=== PATIENT | female | born 1960 | race Caucasian/White ===

== ENCOUNTER 2016-07-17 00:40 | Inpatient (IN) | payer OTHER ==
[~2016-07-17] VITALS: Ht 139.7 cm; Wt 72.7 kg
--- NOTE | ~2016-07-17 | EKG ---
[address] [place] [address] ELECTROCARDIOGRAM REPORT Name: MAHESH PELLETIERALEK Room #: 464-P [facility] IN M.R.#: [id number] Admission: 07/17/16 Attend Phys: Vaughn Agarwal MD Discharge: 07/17/16 Date of : 64 Report #: [id number] THIS REPORT FOR: //name// [facility] ED Test Date: 2016-07-17 Test Time: 00:49:13 Pat Name: LIYAH ARAGON Department: Room: [facility] Gender: F Director Of Analytics: BRENT : 1960 Requested By: Digna Bravo Order Number: [id number] MD: Fam De Guzman Measurements Intervals [place] Rate: 109 P: 37 [place]: 158 QRS: -17 QRSD: 82 T: 70 QT: 337 QTc: 454 Interpretive Statements Sinus tachycardia Borderline left axis deviation Poor R wave progression No previous ECG available for comparison Electronically Signed On 07-18-2016 14:12:51 AGRICULTURAL SCIENTIST by Fam De Guzman [email or web address] <ELECTRONICALLY SIGNED> By: Fam De Guzman MD, [facility] 07/18/16 1412 0049 0049 Fam De Guzman MD, [facility] /EPI
[~2016-07-17 00:40] MED LIST: ASPIR 8181 MG PO; ATORVASTATIN CA40 MG PO; COLACE 100 MG100 MG PO; HYDROCODON-ACE1 EAC7 PO; IBUPROFEN 600600 M1 PO; LEVEMIR FL100 UNIT/2 SQ; LISINOPRIL10 MG; LISINOPRIL5 MG PO; LOPRESSOR25 PO; METFORMIN HCL500 MG; METFORMIN HCL500 MG PO; MIRALAX17 GM PO; NAPROSYN500 MG PO; NORCO 5-325 TA1 EACH PO; NOVOLOG100 UNIT/1 SUBQ; ONDANSETRON HCL4 M2 PO; PACERONE 200 M200 M1 PO; PEPCID20 MG PO; PRINIVIL20 M1 PO; TESSALON PERLE100 MG PO
[2016-07-17 00:43] VITALS: BP 173/101
[2016-07-17 01:24] LABS: ANION GAP 12 mmol/L (7-16); BUN 22 mg/dL (7-18); CALCIUM 8.6 mg/dL (8.5-10.1); CHLORIDE 100 mmol/L (98-107); CO2 26 mmol/L (21-32); CREATININE 0.9 mg/dL (0.6-1.3); GLUCOSE 236 mg/dL (70-99); POTASSIUM 4.3 mmol/L (3.5-5.1); SODIUM 138 mmol/L (136-145)
[2016-07-17 01:33] LABS: TROPONIN-I < 0.04 ng/mL (<0.04-0.07)
[2016-07-17 01:39] LABS: ABSOLUTE NEUTROPHILS 3.2 thou/uL (1.4-8.2); EOSINOPHILS 3.9 % (0.0-3.0); HEMATOCRIT 38.2 % (37.0-47.0); HEMOGLOBIN 12.5 gm/dL (12.0-15.0); LYMPHOCYTES 45.1 % (24.0-44.0); MCH 29.8 pg (26.0-34.0); MCHC 32.8 % (28.0-37.0); MCV 90.7 fL (80.0-100.0); MONOCYTES 7.8 % (1.0-8.0); PLATELET COUNT 318 thou/uL (150-400); POLYS 42.2 % (36.0-66.0); RBC 4.21 mil/uL (4.20-5.00); RDW 13.9 % (10.5-14.5); WBC 7.7 thou/uL (4.0-11.0)
[2016-07-17 01:42] LABS: MANUAL DIFF NO
[2016-07-17] MEDS ORDERED: LISINOPRIL5 MG PO (02:18)
[2016-07-17] MEDS ORDERED: METFORMIN HCL500 MG PO (02:18)
[2016-07-17 02:31] VITALS: BP 134/81
[2016-07-17 03:08] VITALS: BP 166/89
[2016-07-17 07:40] VITALS: BP 146/86
[2016-07-17 08:19] LABS: CHOLESTEROL 241 mg/dL (<200); HDL CHOLESTEROL 51 mg/dL (>40); TC:HDL 4.7 Ratio (Not establshd); TRIGLYCERIDE 493 mg/dL (<150); VLDL 99 mg/dL (<40)
[2016-07-17 11:24] VITALS: BP 125/75
[2016-07-17] MEDS ORDERED: PROTONIX40 M1 PO (14:38)
[2016-07-17 14:51] VITALS: BP 125/75
== END 2016-07-17 15:35 | disposition home or self-care (01) | DRG 313 ==
LOC: ER 00:40 → 4W 01:58 → EROBS 01:58 → 4W 02:37
PROVIDERS: Emergency Medicine; Nurse Practitioner
DX: R07.89 Other chest pain (principal); I25.10 Atherosclerotic heart disease of native coronary artery without angina pectoris; I10 Essential (primary) hypertension; E78.5 Hyperlipidemia, unspecified; D64.9 Anemia, unspecified; R51 Headache; E11.65 Type 2 diabetes mellitus with hyperglycemia; Z79.82 Long term (current) use of aspirin; Z95.1 Presence of aortocoronary bypass graft; Z88.2 Allergy status to sulfonamides
CPT/HCPCS: 10045

== ENCOUNTER 2016-11-19 16:42 | Emergency (ER) | payer OTHER ==
[~2016-11-19] VITALS: Ht 147.3 cm; Wt 67.6 kg
--- NOTE | ~2016-11-19 | EKG ---
[address] [address] ELECTROCARDIOGRAM REPORT Name: ALEK PUGA Room #: [facility]P [facility]#: [id number] Admission: 11/19/16 Attend Phys: Discharge: 11/19/16 Date of : 64 Report #: [id number] THIS REPORT FOR: //name// [facility] ED Test Date: 2016-11-19 Test Time: 16:53:34 Pat Name: ALEK PELLETIER Department: Room: Gender: F Gift Consultant: RON : 1960 Requested By: Balta Hernandez Order Number: [id number] MD: Marlon Castano Measurements Intervals [place] Rate: 98 P: 51 [place]: 148 QRS: -12 QRSD: 82 T: 76 QT: 346 QTc: 442 Interpretive Statements Sinus rhythm Baseline wander in lead(s) V6 Compared to ECG 07/17/2016 00:49:13 Sinus tachycardia no longer present Poor R-wave progression no longer present Electronically Signed On 11-22-2016 8:29:44 CDT by Marlon Castano [email or web address] <ELECTRONICALLY SIGNED> By: Marlon Castano MD 11/22/16 0829 1653 1653 Marlon Castano MD /EPI
[~2016-11-19 16:42] MED LIST changes: +PROTONIX40 M1 PO
[2016-11-19] MEDS ORDERED: ASPIR 8181 MG PO (17:33)
[2016-11-19 17:49] LABS: ABSOLUTE NEUTROPHILS 5.8 thou/uL (1.4-8.2); BASOPHILS 0.6 % (0.0-2.0); EOSINOPHILS 2.4 % (0.0-3.0); HEMATOCRIT 36.8 % (37.0-47.0); HEMOGLOBIN 12.5 gm/dL (12.0-15.0); LYMPHOCYTES 20.9 % (24.0-44.0); MANUAL DIFF NO; MCH 30.6 pg (26.0-34.0); MONOCYTES 7.2 % (1.0-8.0); PLATELET COUNT 328 thou/uL (150-400); POLYS 68.9 % (36.0-66.0); RBC 4.09 mil/uL (4.20-5.00); RDW 13.1 % (10.5-14.5); WBC 8.4 thou/uL (4.0-11.0)
[2016-11-19 17:56] LABS: ANION GAP 9 mmol/L (7-16); BUN 16 mg/dL (7-18); CALCIUM 9.1 mg/dL (8.5-10.1); CHLORIDE 101 mmol/L (98-107); CO2 22 mmol/L (21-32); CREATININE 0.9 mg/dL (0.6-1.0); GLUCOSE 282 mg/dL (74-106); POTASSIUM 4.1 mmol/L (3.5-5.1); SODIUM 132 mmol/L (136-145)
[2016-11-19 17:59] LABS: ABG SAMPLE TYPE ARTERIAL; BE(vivo) -0.4 mmol/L (-2 to +3); HCO3 23.5 mmol/L (22.0-26.0); O2(CT) 17.4 mL/dL (15.0-23.0); O2Hb 95.4 % (92.0-98.0); PCO2 36.1 mmHg (35.0-45.0); pH 7.431 (7.360-7.450); sO2 96.2 % (92.0-98.0); tCO2 24.6 mmol/L (24.0-30.0)
[2016-11-19 18:00] LABS: LACTATE 4.23 mmol/L (0.5-2.0); STICK SITE R.RADIAL
[2016-11-19 18:04] LABS: TROPONIN-I < 0.04 ng/mL (<0.04-0.07)
[2016-11-19] MEDS ORDERED: NORVASC5 MG PO (18:11)
[2016-11-19] MEDS ORDERED: IBUPROFEN 600600 M1 PO (18:11)
[2016-11-19] MEDS ORDERED: LISINOPRIL10 MG PO (18:11)
[2016-11-20] MEDS ORDERED: NORVASC5 MG PO (19:44)
[2016-11-20] MEDS ORDERED: IBUPROFEN 600600 M1 PO (19:44)
== END 2016-11-19 19:30 | disposition home or self-care (01) ==
LOC: ER 16:42
PROVIDERS: Emergency Medicine
DX: I10 Essential (primary) hypertension (principal); I25.10 Atherosclerotic heart disease of native coronary artery without angina pectoris; E11.9 Type 2 diabetes mellitus without complications; Z88.2 Allergy status to sulfonamides

== ENCOUNTER 2016-11-20 16:27 | Emergency (ER) | payer OTHER ==
[~2016-11-20] VITALS: Ht 147.3 cm; Wt 75.3 kg
--- NOTE | ~2016-11-20 | EKG ---
[address] [address] ELECTROCARDIOGRAM REPORT Name: ALEK PUGA Room #: [facility]P [facility]#: [id number] Admission: 11/20/16 Attend Phys: Discharge: 11/20/16 Date of : 64 Report #: [id number] THIS REPORT FOR: //name// [facility] ED Test Date: 2016-11-20 Test Time: 16:43:15 Pat Name: ALEK PELLETIER Department: Room: Gender: F Toucher Up: triny : 1960 Requested By: Rehan Finney Order Number: [id number] MD: Marlon Castano Measurements Intervals [place] Rate: 94 P: 43 [place]: 154 QRS: -9 QRSD: 82 T: 78 QT: 361 QTc: 452 Interpretive Statements Sinus rhythm Compared to ECG 07/17/2016 00:49:13 Sinus tachycardia no longer present Poor R-wave progression no longer present Electronically Signed On 11-22-2016 8:46:26 CDT by Marlon Castano [email or web address] <ELECTRONICALLY SIGNED> By: Marlon Castano MD 11/22/16 0846 42 42 Marlon Castano MD /SISI
[~2016-11-20 16:27] MED LIST changes: +LISINOPRIL10 MG PO; +NORVASC5 MG PO
[2016-11-20 17:28] LABS: ABSOLUTE NEUTROPHILS 4.5 thou/uL (1.4-8.2); EOSINOPHILS 2.5 % (0.0-3.0); HEMATOCRIT 36.4 % (37.0-47.0); HEMOGLOBIN 12.8 gm/dL (12.0-15.0); LYMPHOCYTES 32.7 % (24.0-44.0); MCH 31.2 pg (26.0-34.0); MCHC 35.1 g/dL (28.0-37.0); MCV 88.7 fL (80.0-100.0); MONOCYTES 7.1 % (1.0-8.0); PLATELET COUNT 348 thou/uL (150-400); POLYS 56.7 % (36.0-66.0); RDW 12.8 % (10.5-14.5)
[2016-11-20 17:32] LABS: MANUAL DIFF NO
[2016-11-20 17:36] LABS: ANION GAP 14 mmol/L (7-16); BUN 22 mg/dL (7-18); CALCIUM 8.9 mg/dL (8.5-10.1); CHLORIDE 99 mmol/L (98-107); CO2 21 mmol/L (21-32); CREATININE 0.9 mg/dL (0.6-1.0); GLUCOSE 128 mg/dL (74-106); POTASSIUM 4.1 mmol/L (3.5-5.1); SODIUM 134 mmol/L (136-145)
[2016-11-20 17:47] LABS: ALKALINE PHOSPHATASE 151 U/L (46-116); NT-PRO BRAIN NAT PEPTIDE 88 pg/mL (<300); SGOT 21 U/L (15-37); SGPT 25 U/L (30-65); TOTAL BILIRUBIN 0.4 mg/dL (<0.1-1.0); TOTAL PROTEIN 8.3 g/dL (6.4-8.2); TROPONIN-I < 0.04 ng/mL (<0.04-0.07)
[2016-11-20] MEDS ORDERED: IBUPROFEN 600600 M1 PO (19:44)
[2016-11-20] MEDS ORDERED: NORVASC5 MG PO (19:44)
== END 2016-11-20 20:11 | disposition home or self-care (01) ==
LOC: ER 16:27
PROVIDERS: Physician Assistant
DX: R03.0 Elevated blood-pressure reading, without diagnosis of hypertension (principal); R07.9 Chest pain, unspecified; I25.10 Atherosclerotic heart disease of native coronary artery without angina pectoris; E11.9 Type 2 diabetes mellitus without complications; E78.5 Hyperlipidemia, unspecified; Z79.4 Long term (current) use of insulin; Z88.2 Allergy status to sulfonamides

== ENCOUNTER 2017-04-17 19:53 | Emergency (ER) | payer OTHER ==
[~2017-04-17] VITALS: Ht 148 cm; Wt 72.1 kg
--- NOTE | ~2017-04-17 | EKG ---
[address] [address] ELECTROCARDIOGRAM REPORT Name: ARAGONDAKOTAH PELLETIERALEK Room #: [facility]#: [id number] Admission: 04/17/17 Attend Phys: Discharge: Date of : 64 Report #: [id number] THIS REPORT FOR: //name// [facility] ED Test Date: 2017-04-17 Test Time: 19:54:26 Pat Name: ALEK PELLETIER Department: Room: Gender: F Environmental Research Scientist: LORY : 1960 Requested By: Oscar Glover Order Number: [id number] MD: Marlon Castano Measurements Intervals [place] Rate: 90 P: 55 [place]: 149 QRS: -11 QRSD: 83 T: 58 QT: 368 QTc: 451 Interpretive Statements Sinus rhythm Compared to ECG 01/13/2017 01:00:19 No significant changes Electronically Signed On 04-17-2017 23:34:13 CDT by Marlon Castano [email or web address] <ELECTRONICALLY SIGNED> By: Marlon Castano MD 04/17/17 2334 53 53 Marlon Castano MD /SISI
[2017-04-17 20:33] LABS: ABSOLUTE NEUTROPHILS 8.7 thou/uL (1.4-8.2); BASOPHILS 1.2 % (0.0-2.0); EOSINOPHILS 2.1 % (0.0-3.0); HEMATOCRIT 29.1 % (37.0-47.0); LYMPHOCYTES 20.2 % (24.0-44.0); MCH 30.6 pg (26.0-34.0); MCHC 34.3 g/dL (28.0-37.0); MCV 89.1 fL (80.0-100.0); MONOCYTES 5.9 % (1.0-8.0); PLATELET COUNT 376 thou/uL (150-400); POLYS 70.6 % (36.0-66.0); RBC 3.26 mil/uL (4.20-5.00); RDW 13.4 % (10.5-14.5); WBC 12.4 thou/uL (4.0-11.0)
[2017-04-17 20:34] LABS: MANUAL DIFF NO
[2017-04-17 20:43] LABS: ANION GAP 9 mmol/L (7-16); BUN 25 mg/dL (7-18); CALCIUM 8.9 mg/dL (8.5-10.1); CHLORIDE 102 mmol/L (98-107); CO2 24 mmol/L (21-32); CREATININE 1.1 mg/dL (0.6-1.0); GLUCOSE 106 mg/dL (74-106); POTASSIUM 4.4 mmol/L (3.5-5.1); SODIUM 135 mmol/L (136-145)
[2017-04-17 20:50] LABS: PROTIME 10.2 Seconds (9.3-11.4)
[2017-04-17 20:52] LABS: ALBUMIN 3.7 g/dL (3.4-5.0); ALKALINE PHOSPHATASE 119 U/L (46-116); MAGNESIUM 1.6 mg/dL (1.8-2.4); SGOT 19 U/L (15-37); SGPT 19 U/L (30-65); TOTAL BILIRUBIN 0.2 mg/dL (<0.1-1.0); TOTAL PROTEIN 8.1 g/dL (6.4-8.2); TROPONIN-I < 0.04 ng/mL (<0.04-0.07)
[2017-04-17] MEDS ORDERED: HUMALOG KW200 UNIT/1 SUBQ (21:33)
[2017-04-17 21:35] LABS: AMP/METHAMP Negative (Negative); BARBITURATES Negative (Negative); BENZODIAZEPINES Negative (Negative); COCAINE Negative (Negative); METHADONE Negative (Negative); OPIATES Negative (Negative); PCP Negative (Negative); THC Negative (Negative)
[2017-04-17 21:38] LABS: ACETAMINOPHEN < 2 ug/mL (10-30); SALICYLATE < 2.0 mg/dL (2.8-20.0)
[2017-04-17] MEDS ORDERED: NAPROSYN500 MG PO (22:59)
[2017-04-18] MEDS ORDERED: BUTALB-APAP-CA1 EACH PO (23:28)
[2017-04-18] MEDS ORDERED: ROBAXIN500 MG PO (23:28)
[2017-04-18] MEDS ORDERED: NAPROXEN375 MG PO (23:28)
== END 2017-04-17 23:30 | disposition home or self-care (01) ==
LOC: ER 19:53
PROVIDERS: Emergency Medicine; Nurse Practitioner Family
DX: R07.89 Other chest pain (principal); M25.512 Pain in left shoulder; E78.5 Hyperlipidemia, unspecified; E11.9 Type 2 diabetes mellitus without complications; Z95.1 Presence of aortocoronary bypass graft; I25.10 Atherosclerotic heart disease of native coronary artery without angina pectoris; F41.9 Anxiety disorder, unspecified; F32.9 Major depressive disorder, single episode, unspecified

== ENCOUNTER 2017-04-18 21:03 | Emergency (ER) | payer OTHER ==
[~2017-04-18] VITALS: Ht 152.4 cm; Wt 67.6 kg
[~2017-04-18 21:03] MED LIST changes: +HUMALOG KW200 UNIT/1 SUBQ
[2017-04-18 22:22] LABS: HEMATOCRIT 30.7 % (37.0-47.0); HEMOGLOBIN 10.4 gm/dL (12.0-15.0); MCH 30.3 pg (26.0-34.0); MCHC 33.9 g/dL (28.0-37.0); MCV 89.2 fL (80.0-100.0); RBC 3.45 mil/uL (4.20-5.00); RDW 13.4 % (10.5-14.5); WBC 15.6 thou/uL (4.0-11.0)
[2017-04-18 22:32] LABS: CALCIUM 9.3 mg/dL (8.5-10.1); CREATININE 1.3 mg/dL (0.6-1.0); POTASSIUM 4.1 mmol/L (3.5-5.1)
[2017-04-18 22:38] LABS: ALBUMIN 3.7 g/dL (3.4-5.0); TOTAL BILIRUBIN 0.2 mg/dL (<0.1-1.0); TOTAL PROTEIN 8.3 g/dL (6.4-8.2)
[2017-04-18] MEDS ORDERED: NAPROXEN375 MG PO (23:28)
[2017-04-18] MEDS ORDERED: ROBAXIN500 MG PO (23:28)
[2017-04-18] MEDS ORDERED: BUTALB-APAP-CA1 EACH PO (23:28)
== END 2017-04-18 23:51 | disposition home or self-care (01) ==
LOC: ER 21:03
PROVIDERS: Emergency Medicine
DX: E11.65 Type 2 diabetes mellitus with hyperglycemia (principal); F41.9 Anxiety disorder, unspecified; M43.6 Torticollis; G44.209 Tension-type headache, unspecified, not intractable; I25.10 Atherosclerotic heart disease of native coronary artery without angina pectoris; E78.00 Pure hypercholesterolemia, unspecified; Z88.2 Allergy status to sulfonamides

== ENCOUNTER 2018-11-26 18:37 | Emergency (ER) | payer OTHER ==
[~2018-11-26] VITALS: Ht 154.9 cm; Wt 72.6 kg
[~2018-11-26 18:37] MED LIST changes: +BUTALB-APAP-CA1 EACH PO; +NAPROXEN375 MG PO; +ROBAXIN500 MG PO
[2018-11-26] MEDS ORDERED: HYDROCODONE-AP1 EAC6 PO (20:17)
[2018-11-26 21:44] VITALS: BP 173/70
== END 2018-11-26 21:44 | disposition home or self-care (01) ==
LOC: ER 18:37
DX: S92.352A Displaced fracture of fifth metatarsal bone, left foot, initial encounter for closed fracture (principal); S93.492A Sprain of other ligament of left ankle, initial encounter; I25.10 Atherosclerotic heart disease of native coronary artery without angina pectoris; E11.9 Type 2 diabetes mellitus without complications; E78.5 Hyperlipidemia, unspecified; Z88.2 Allergy status to sulfonamides; W01.0XXA Fall on same level from slipping, tripping and stumbling without subsequent striking against object, initial encounter; Y93.01 Activity, walking, marching and hiking; Y92.89 Other specified places as the place of occurrence of the external cause; Y99.8 Other external cause status